=== PATIENT | female | born 1960 ===

== ENCOUNTER 2020-02-23 13:54 | Emergency (ER) | payer OTHER, SELFPAY ==
--- NOTE | 2020-02-23 | ECG_ITS ---
Test Reason : CHEST PAIN Blood Pressure : / mmHG Vent. Rate : 086 BPM Atrial Rate : 086 BPM P-R Int : 110 ms QRS Dur : 084 ms QT Int : 390 ms P-R-T Axes : 020 -55 036 degrees QTc Int : 466 ms Sinus rhythm with short OK Left anterior fascicular block Abnormal ECG No previous ECGs available Referred By: Generic ED Physician Electronically Signed By:JAIME PEPPER
[2020-02-23 14:04] VITALS: BP 177/104; PULSE 90; RESP 18; TEMP 36.6; O2SAT 98; BMI 28.6
[2020-02-23 14:11] VITALS: BP 145/98
--- NOTE | 2020-02-23 15:28 | XR_ITS ---
EXAMINATION: XR CHEST CLINICAL INFORMATION: Chest pain COMPARISON: None TECHNIQUE: Frontal view of the chest was obtained. FINDINGS: No significant abnormality is noted involving the heart, lungs, mediastinum, bony thorax or soft tissues. XR/XR chest 1V IMPRESSION: Unremarkable examination.
--- NOTE | 2020-02-23 16:01 | ED_ITS ---
HPI - Chest Pain General Chief Complaint: Chest Pain Stated Complaint: SUDDEN ONSET CP Time Seen by Provider: 02/23/20 15:53 Source: patient Mode of arrival: EMS Limitations: language barrier History of Present Illness HPI narrative: Finish comes emergency room complaining of chest pain. Patient states approximately at 12:30, she was sitting at her table at home, then started having a sudden onset of squeezing pain in the substernal area. Patient states this has happened in the past once. Patient has no cardiac history. Patient called 911, she was given 3 nitro tablets, full-dose aspirin, states the pain improved from 12/04 to 6/10. At this time, patient states that she still has ongoing chest discomfort. Patient states it is worse if she sits up. Related Data Previous Rx's Medication Instructions Recorded ibuprofen 600 mg PO TID PRN #10 tab 02/23/20 Allergies Allergy/AdvReac Type Severity Reaction Status Date / Time Penicillins AdvReac Rash Verified 02/23/20 14:10 Review of Systems Review of Systems: Constitutional : No Weight loss, No Fever, No Chills, No Night Sweats, No Fatigue, No Malaise ENT/Mouth : No Hearing loss, No Ear Pain, No Nasal Congestion, No Sinus Pain, No Hoarseness, No sore throat, No Rhinorrhea, No Swallowing Difficulty Eyes: No Eye Pain, No Swelling, No Redness, No Foreign Body, No Discharge, No Vision Changes Cardiovascular : Complaining of Chest Pain, complaining of chronic episodes of SOB, this time no dyspnea, symptoms not related to exertion, No Orthopnea, No Edema, No Palpitations Respiratory : No Cough, No Sputum, No Wheezing, No Smoke Exposure, No Dyspnea Gastrointestinal : No Nausea, No Vomiting, No Diarrhea, No Constipation, No abdominal Pain, No Hematochezia, No Melena Genitourinary : no irregular bleeding, No Dysuria, No Urinary Frequency, No Hematuria, No Urinary Incontinence, No Urgency, No Flank Pain, No Urinary Flow Changes, No Hesitancy Musculoskeletal : No joint pain, No Myalgias, No Joint Swelling Skin : No Skin Lesions, No rash Neuro : No Weakness, No Numbness, No Paresthesias, No Loss of Consciousness, No Dizziness, No Headache Psych : No Anxiety/Panic, No Depression, No SI/HI/AH/VH, No Social Issues, Heme/Lymph: No Bruising, No Bleeding,No Lymphadenopathy Endocrine : No Polyuria, No Polydipsia, No Temperature Intolerance [facility] Past Medical History Medical History (Updated 02/23/20 @ 17:42 by Emily Singh MD) Hypertension Pulmonary lesion Social History Social History Smoking Status: Current every day smoker Use of substances other than those prescribed or required for medical reasons: No Advance Directives: No Advance Directives Information Provided: No Physical Exam Vital Signs: Vital Signs: Last Vital Signs Temp 98.6 F 02/23/20 16:42 Pulse 71 02/23/20 16:42 Resp 16 02/23/20 16:42 BP 166/97 H 02/23/20 16:42 Pulse Ox 98 02/23/20 16:42 Body Mass Index 28.6 Appearance: Alert. Oriented X3. No acute distress. Eyes: Pupils equal, round and reactive to light. ENT: Pharynx normal. Neck: Normal inspection. Neck supple. No lymph nodes noted. No crepitus CVS: Normal heart rate and rhythm. Pulses normal. Normal S1 and S2, reproducible chest pain with palpation over the sternum Respiratory: No respiratory distress. Breath sounds normal. No Wheezing. No r ales Abdomen: Soft and nontender. No rigidity. No distention. good BS x4 Skin: Skin warm and dry. Normal skin color. Normal skin turgor. Extremities: No lower extremity edema. No lower extremity edema. No Lacerations. No Rash Neuro: Oriented X 3. No motor deficit. No sensory deficit. Moving all extermities. No slurred speech. Course Course Course Narrative: I discussed the labs and imaging with the patient, no acute findings. Patient states she does feel better, patient states she has no pain at rest or with exertion, only when she moves her left arm or if she presses on her left side of the chest. Patient feels ready to be discharged home. The source of the patient's chest pain, likely musculoskeletal. Unlikely to be from cardiac or pulmonary etiology. MDM - Chest Pain Lab Data Result diagrams: 02/23/20 16:05 02/23/20 16:04 Labs: Lab Results 02/23/20 02/23/20 02/23/20 Range/Units 16:04 16:05 16:05 WBC 9.6 (4.8-10.8) X10*3/uL RBC 4.44 (4.20-5.50) X10*6/uL Hgb 13.3 (12.0-16.0) g/dl Hct 41.3 (37-47) % MCV 93.0 (80-98) fL MCH 30.0 (27.0-33.0) pg MCHC 32.2 (31.0-35.0) g/dl RDW 13.0 (11.0-16.0) % Plt Count 289 (160-400) X10*3/uL MPV 10.4 (9.4-12.3) fL Immature Gran % (Auto) 0.5 H (0.0-0.4) % Neut % (Auto) 62.5 (45-73) % Lymph % (Auto) 26.8 (20-40) % [place] % (Auto) 7.8 (2-11) % Eos % (Auto) 2.0 (0-4) % Baso % (Auto) 0.4 (0-2) % Lymph # (Auto) 2.6 (1.2-4.9) X10*3/uL [place] # (Auto) 0.8 (0.1-1.2) X10*3/uL Eos # (Auto) 0.2 (0.0-0.4) X10*3/uL Baso # (Auto) 0.0 (0.0-0.2) X10*3/uL Abs Immat Gran (auto) 0.05 H (0.00-0.03) X10*3/uL Absolute Neuts (auto) 6.0 (2.0-8.3) X10*3/uL Absolute Nucleated RBC 0.000 (0.0-0.012) X10*3/uL Nucleated RBC % (auto) 0.0 (0.0-0.2) /100WBC D-Dimer NG/ML Hold Blue Top SEE NOTE Sodium 141 (135-145) mmol/L Potassium 4.5 (3.3-5.1) mmol/l Chloride 105 (96-108) mmol/L Carbon Dioxide 27 (22-29) mmol/L Anion Gap 14 (12-20) BUN 16 (9-16) mg/dL Creatinine 0.77 (0.5-1.4) mg/dL Estim Creat Clear Calc 64.9 Estimated GFR > 60 Random Glucose 75 (60-115) mg/dL Calcium 8.9 (8.4-10.2) mg/dL Troponin I High Sens (<3.5-17.0) ng/L 02/23/20 02/23/20 Range/Units 16:05 16:05 WBC (4.8-10.8) X10*3/uL RBC (4.20-5.50) X10*6/uL Hgb (12.0-16.0) g/dl Hct (37-47) % MCV (80-98) fL MCH (27.0-33.0) pg MCHC (31.0-35.0) g/dl RDW (11.0-16.0) % Plt Count (160-400) X10*3/uL MPV (9.4-12.3) fL Immature Gran % (Auto) (0.0-0.4) % Neut % (Auto) (45-73) % Lymph % (Auto) (20-40) % [place] % (Auto) (2-11) % Eos % (Auto) (0-4) % Baso % (Auto) (0-2) % Lymph # (Auto) (1.2-4.9) X10*3/uL [place] # (Auto) (0.1-1.2) X10*3/uL Eos # (Auto) (0.0-0.4) X10*3/uL Baso # (Auto) (0.0-0.2) X10*3/uL Abs Immat Gran (auto) (0.00-0.03) X10*3/uL Absolute Neuts (auto) (2.0-8.3) X10*3/uL Absolute Nucleated RBC (0.0-0.012) X10*3/uL Nucleated RBC % (auto) (0.0-0.2) /100WBC D-Dimer < 200 NG/ML Hold Blue Top Sodium (135-145) mmol/L Potassium (3.3-5.1) mmol/l Chloride (96-108) mmol/L Carbon Dioxide (22-29) mmol/L Anion Gap (12-20) BUN (9-16) mg/dL Creatinine (0.5-1.4) mg/dL Estim Creat Clear Calc Estimated GFR Random Glucose (60-115) mg/dL Calcium (8.4-10.2) mg/dL Troponin I High Sens < 3.5 (<3.5-17.0) ng/L Scores Heart Score History: -0- slightly suspicious ECG: -0- normal Age: -1- >45 - <65 Risk factory: -1- 1 or 2 risk factors Troponin: -0- < or = normal limit Score: 2 Risk: 1.7% Wells PE Clinical symptoms of DVT: 3 Score: 3 2-tier Risk: likely risk (17-53%) 3-tier Risk: moderate risk (27.8%) Discharge Plan Discharge Clinical Impression: Atypical chest pain Patient Disposition: Home, Self-Care Instructions: Chest Pain (ED) Additional Instructions: Please follow-up with your primary care physician tomorrow. If you have any worsening or new symptoms, please return to the emergency room or call 911 Prescriptions: New ibuprofen 600 mg tablet 600 mg PO TID PRN (Reason: pain) Qty: 10 RF: 0
[2020-02-23 16:15] LABS: MANUAL DIFF FLAG NO
[2020-02-23 16:18] LABS: Basophils Percent Auto 0.4 % (0-2); Eosinophils Absolute Auto 0.2 X10*3/uL (0.0-0.4); Hematocrit 41.3 % (37-47); Hemoglobin 13.3 g/dl (12.0-16.0); Imm Gran Abs Auto 0.05 X10*3/uL (0.00-0.03); Imm Gran Pct Auto 0.5 % (0.0-0.4); Lymphocytes Absolute Auto 2.6 X10*3/uL (1.2-4.9); Lymphocytes Percent Auto 26.8 % (20-40); Mean Corpuscular HGB Conc 32.2 g/dl (31.0-35.0); Mean Platelet Volume 10.4 fL (9.4-12.3); Monocytes Absolute Auto 0.8 X10*3/uL (0.1-1.2); Monocytes Percent Auto 7.8 % (2-11); Neutrophils Percent Auto 62.5 % (45-73); Platelet Count 289 X10*3/uL (160-400); Red Blood Count 4.44 X10*6/uL (4.20-5.50); White Blood Count 9.6 X10*3/uL (4.8-10.8)
[2020-02-23 16:30] LABS: D Dimer < 200 NG/ML
[2020-02-23] MEDS: Morphine Sulfate 4 MG/ML CARTRIDGE 3 MG IVPUSH (16:34)
[2020-02-23 16:35] VITALS: BP 148/97; PULSE 76; RESP 16; O2SAT 97
[2020-02-23 16:42] VITALS: BP 166/97; PULSE 71; RESP 16; TEMP 37; O2SAT 98
[2020-02-23 16:46] LABS: Anion Gap 14 (12-20); Blood Urea Nitrogen 16 mg/dL (9-16); Calcium 8.9 mg/dL (8.4-10.2); Carbon Dioxide 27 mmol/L (22-29); Chloride 105 mmol/L (96-108); Creatinine Clr Calc Pharmacy 64.9; Estimated Glomerular Filt Rate > 60; Glucose Random 75 mg/dL (60-115); Potassium 4.5 mmol/l (3.3-5.1); Sodium 141 mmol/L (135-145)
[2020-02-23 16:55] LABS: Troponin-I High Sensitivity < 3.5 ng/L (<3.5-17.0)
== END 2020-02-23 18:24 | disposition home or self-care (01) ==
PROVIDERS: Emergency Provider Emergency Medicine
DX: R07.89 Other chest pain (principal); I10 Essential (primary) hypertension; F17.200 Nicotine dependence, unspecified, uncomplicated; Z71.6 Tobacco abuse counseling; Z79.899 Other long term (current) drug therapy
CPT/HCPCS: 36415; 71045; 80048; 84484; 85025; 85379; 93005; 96374; 99284; J2270

== ENCOUNTER 2022-05-14 08:37 | Outpatient (RCR) | payer OTHER, SELFPAY | END 2022-09-10 16:00 | disposition home or self-care (01) | LOC: HO.WCC 08:37 | PROVIDERS: Visit Provider Physician Assistant | DX: I70.262 Atherosclerosis of native arteries of extremities with gangrene, left leg (principal); L97.522 Non-pressure chronic ulcer of other part of left foot with fat layer exposed; I10 Essential (primary) hypertension; I95.9 Hypotension, unspecified; Z86.718 Personal history of other venous thrombosis and embolism; Z87.891 Personal history of nicotine dependence | CPT/HCPCS: 11042; 97597; 99213; 99215 ==

== ENCOUNTER 2022-08-26 15:40 | Emergency (ER) | payer OTHER, SELFPAY ==
[2022-08-26 15:48] VITALS: BP 152/92; BP 160/100; PULSE 102; PULSE 98; RESP 18; TEMP 37.2; O2SAT 98; O2SAT 99; BMI 27.9
[2022-08-26 15:54] VITALS: RESP 18
[2022-08-26 16:00] VITALS: BP 152/89
--- NOTE | 2022-08-26 16:14 | PC.NURSE ---
pt a&ox3. respirations equal and unlabored. skin appropriate for ethnicity. abdominal sounds hypoactive in all 4 quadrants with tenderness in right, left and epigastric regions. pt reporting epigastric pain for 3 days with 2 days of diarrhea. nausea reported today without vomiting and diarrhea.
--- NOTE | 2022-08-26 17:38 | ED.ABDPAIN ---
HPI - Abdominal Pain General Chief Complaint: Abdominal Pain Stated Complaint: ABD PAIN Time Seen by Provider: 08/26/22 17:22 Source: patient and family Mode of arrival: EMS Limitations: no limitations History of Present Illness HPI narrative: Patient comes to the emergency room by ambulance from home. Patient reporting epigastric pain for 2 days, diarrhea for 2 days, nausea, no vomiting. Patient denies fever or chills. Denies URI or UTI symptoms. Related Data Previous Rx's Medication Instructions Recorded ibuprofen 600 mg tablet 600 mg PO TID PRN pain #10 tabs 02/23/20 cefuroxime axetil 500 mg tablet 500 mg PO BID #13 tabs 08/27/22 ondansetron HCl 4 mg tablet 4 mg PO Q6H PRN nausea and 08/27/22 vomiting #14 tabs Allergies Allergy/AdvReac Type Severity Reaction Status Date / Time Penicillins AdvReac Rash Verified 02/23/20 14:10 Review of Systems Review of Systems Constitutional : No Weight loss, No Fever, No Chills, No Night Sweats, No Fatigue, No Malaise ENT/Mouth : No Hearing loss, No Ear Pain, No Nasal Congestion, No Sinus Pain, No Hoarseness, No sore throat, No Rhinorrhea, No Swallowing Difficulty Eyes: No Eye Pain, No Swelling, No Redness, No Foreign Body, No Discharge, No Vision Changes Cardiovascular : No Chest Pain, No SOB, No Dyspnea on Exertion, No Orthopnea, No Edema, No Palpitations Respiratory : No Cough, No Sputum, No Wheezing, No Smoke Exposure, No Dyspnea Gastrointestinal : Complaining of nausea with no vomiting, 2 days of diarrhea, epigastric pain, complaining of distension Genitourinary : no irregular bleeding, No Dysuria, No Urinary Frequency, No Hematuria, No Urinary Incontinence, No Urgency, No Flank Pain, No Urinary Flow Changes, No Hesitancy Musculoskeletal : No joint pain, No Myalgias, No Joint Swelling Skin : No Skin Lesions, No rash Neuro : No Weakness, No Numbness, No Paresthesias, No Loss of Consciousness, No Dizziness, No Headache Psych : No Anxiety/Panic, No Depression, No SI/HI/AH/VH, No Social Issues, Heme/Lymph: No Bruising, No Bleeding,No Lymphadenopathy Endocrine : No Polyuria, No Polydipsia, No Temperature Intolerance [facility] Past Medical History Medical History Hypertension Pulmonary lesion Social History Social History Alcohol intake: never Smoked in Last 30 Days: Yes Use of substances other than those prescribed or required for medical reasons: No Advance Directives: No Advance Directives Information Provided: No Physical Exam ED Vital Signs: Vital Signs - 24 hr 08/26/22 15:48 08/26/22 15:54 08/26/22 16:00 Temperature 99.0 F Pulse Rate 98 Respiratory Rate 18 18 Blood Pressure 160/100 H 152/89 H Pulse Oximetry 99 Oxygen Delivery Method Room Air 08/26/22 18:07 08/26/22 20:14 08/26/22 23:45 Temperature 97.9 F 99.0 F Pulse Rate 93 88 97 Respiratory Rate 18 12 17 Blood Pressure 123/81 150/82 H 143/89 H Pulse Oximetry 99 98 100 Oxygen Delivery Method Room Air Room Air Room Air 08/27/22 02:00 Temperature 99.1 F Pulse Rate 89 Respiratory Rate 17 Blood Pressure 133/79 Pulse Oximetry 98 Oxygen Delivery Method Room Air BMI result Body Mass Index 27.9 Const Other: Appearance: Alert. Oriented X3. No acute distress. Seems uncomfortable Eyes: Pupils equal, round and reactive to light. ENT: Pharynx normal. Neck: Normal inspection. Neck supple. No lymph nodes noted. No crepitus CVS: Normal heart rate and rhythm. Pulses normal. Normal S1 and S2 Respiratory: No respiratory distress. Breath sounds normal. No Wheezing. No rales Abdomen: Soft , mild discomfort to palpation in the epigastric area, negative Cedillo sign, No rebound, no guarding Skin: Skin warm and dry. Normal skin color. Normal skin turgor. Extremities: No lower extremity edema. No Lacerations. No Rash Neuro: Oriented X 3. No motor deficit. No sensory deficit. Moving all extremities. No slurred speech. CN 2 through 12 grossly intact Psych: calm, cooperative, normal affect Medical Decision Making Medical Decision Making MDM Narrative: I reviewed patient's labs, sodium is 128, which is acute for the patient. Admission is considered. Patient being hydrated with IV fluids. White blood cell count within normal limits, 8.2. Platelets slightly elevated, likely secondary to dehydration -heart rate 97, no C7 depression or elevation, no T-wave inversion, QTC 444 -epigastric pain present, CT scan is pending. -patient also complaining of diarrhea, no vomiting -we will repeat electrolyte levels. -troponin elevated, 20.5, no chest pain, EKG negative for STEMI, 2nd troponin 28.7 -EKG my interpretation: Normal sinus rhythm, heart rate 97, no ST segment depression or elevation, no T-wave inversion, QTC 444 -I agree with Dr. Carroll, troponins are flat, EKG is not concerning for a STEMI or NSTEMI, patient would not be started on heparin for anticoagulation -patient asymptomatic -I discussed the CT scan with Dr. Barragan from radiology. Patient may have acute cholecystitis, left nephrolithiasis with possible Renal mass vs column of Sal -will obtain an ultrasound of the gallbladder/liver to rule out acute cholecystitis. Unlikely to be acute cholecystitis, patient's LFTs within normal limits -of ultrasound shows sludge, discussed with Dr. Wong -system is unavailable, I am unable t to see the ultrasound -if patient continues having epigastric pain, she needs to follow up with surgery. -discussed with the patient she has a mild UTI -hypokalemia -patient has very mild hypokalemia, given p.o. potassium, can follow up with her primary care physician -hyponatremia -sodium improved from 120-130, hyponatremia is mild. -I discussed all this abnormalities with Dr. Carroll, patient not meeting requirements for admission. Additionally, patient would like to home, very reluctant to stay in the hospital. Differential Diagnosis Differential Diagnoses: The differential diagnosis associated with the presentation includes (Viral syndrome, pancreatitis, peptic ulcer disease, ulcer perforation, gastritis, gastroenteritis) Admission/Observation Consideration of admission/observation: Escalation of care including admission/observation considered Consult Healthcare Provider Management of the patient was discussed with: Hospitalist (I discussed the patient with Dr. Carroll, this time, no need for admission.) and [employer] (Dr. Wong from radiology) Lab Data MDM Lab Attestation statement: I reviewed the patient's lab results. 08/26/22 16:10 08/26/22 16:10 Labs: Lab Results 08/26/22 08/26/22 08/26/22 Range/Units 16:10 16:10 16:10 WBC 8.2 (4.8-10.8) X10*3/uL RBC 4.31 (4.20-5.50) X10*6/uL Hgb 11.9 L (12.0-16.0) g/dl Hct 34.3 L (37.0-47.0) % MCV 79.6 L (80.0-98.0) fL MCH 27.6 (27.0-33.0) pg MCHC 34.7 (31.0-35.0) g/dl RDW 15.4 (11.0-16.0) % Plt Count 475 H (160-400) X10*3/uL MPV 8.6 L (9.4-12.3) fL Immature Gran % (Auto) 0.2 (0.0-0.4) % Neut % (Auto) 61.8 (45-73) % Lymph % (Auto) 27.1 (20-40) % [place] % (Auto) 9.9 (2-11) % Eos % (Auto) 0.5 (0-4) % Baso % (Auto) 0.5 (0-2) % Lymph # (Auto) 2.2 (1.2-4.9) X10*3/uL [place] # (Auto) 0.8 (0.1-1.2) X10*3/uL Eos # (Auto) 0.0 (0.0-0.4) X10*3/uL Baso # (Auto) 0.0 (0.0-0.2) X10*3/uL Abs Immat Gran (auto) 0.02 (0.00-0.03) X10*3/uL Absolute Neuts (auto) 5.1 (2.0-8.3) x10*3/uL Absolute Nucleated RBC 0.000 (0.0-0.012) X10*3/uL Nucleated RBC % (auto) 0.0 (0.0-0.2) /100WBC Sodium 128 L (135-145) mmol/L Potassium 3.5 (3.3-5.1) mmol/L Chloride 88 L (96-108) mmol/L Carbon Dioxide 26 (22-29) mmol/L Anion Gap 18 (12-20) BUN 14 (9-16) mg/dL Creatinine 0.89 (0.5-1.4) mg/dL Estim Creat Clear Calc 53.4 Estimated GFR > 60 Random Glucose 138 H (60-115) mg/dL Calcium 10.4 H D (8.4-10.2) mg/dL Total Bilirubin 0.5 (0.0-1.0) mg/dL Direct Bilirubin 0.2 (0.0-0.5) mg/dL AST 14 (5-31) U/L ALT 11 (0-31) U/L Alkaline Phosphatase 99 (39-117) U/L Troponin I High Sens 20.5 H (<3.5-17.0) ng/L Total Protein 8.2 H (6.5-8.0) g/dL Albumin 4.7 (3.5-5.0) g/dL Lipase 11 (8-78) U/L Urine Color Urine Appearance Urine pH (5.0-9.0) Ur Specific [place] (1.005-1.025) Urine Protein (Neg-Trace) mg/dL Urine Glucose (UA) (Negative) mg/dL Urine Ketones (Negative) mg/dL Urine Blood (Negative) Urine Nitrite (Negative) Ur Leukocyte Esterase (Negative) Urine RBC (0-2) /HPF Urine WBC (0-5) /HPF Ur Squamous Epith Cells (0-2) /HPF Urine Bacteria (None Seen) Hyaline Casts (0-2) /LPF 08/26/22 08/26/22 08/26/22 Range/Units 16:57 23:51 23:51 WBC (4.8-10.8) X10*3/uL RBC (4.20-5.50) X10*6/uL Hgb (12.0-16.0) g/dl Hct (37.0-47.0) % MCV (80.0-98.0) fL MCH (27.0-33.0) pg MCHC (31.0-35.0) g/dl RDW (11.0-16.0) % Plt Count (160-400) X10*3/uL MPV (9.4-12.3) fL Immature Gran % (Auto) (0.0-0.4) % Neut % (Auto) (45-73) % Lymph % (Auto) (20-40) % [place] % (Auto) (2-11) % Eos % (Auto) (0-4) % Baso % (Auto) (0-2) % Lymph # (Auto) (1.2-4.9) X10*3/uL [place] # (Auto) (0.1-1.2) X10*3/uL Eos # (Auto) (0.0-0.4) X10*3/uL Baso # (Auto) (0.0-0.2) X10*3/uL Abs Immat Gran (auto) (0.00-0.03) X10*3/uL Absolute Neuts (auto) (2.0-8.3) x10*3/uL Absolute Nucleated RBC (0.0-0.012) X10*3/uL Nucleated RBC % (auto) (0.0-0.2) /100WBC Sodium 130 L (135-145) mmol/L Potassium 3.2 L (3.3-5.1) mmol/L Chloride 95 L (96-108) mmol/L Carbon Dioxide 23 (22-29) mmol/L Anion Gap 15 (12-20) BUN 12 (9-16) mg/dL Creatinine 0.79 (0.5-1.4) mg/dL Estim Creat Clear Calc 60.1 Estimated GFR > 60 Random Glucose 110 (60-115) mg/dL Calcium 9.6 D (8.4-10.2) mg/dL Total Bilirubin (0.0-1.0) mg/dL Direct Bilirubin (0.0-0.5) mg/dL AST (5-31) U/L ALT (0-31) U/L Alkaline Phosphatase (39-117) U/L Troponin I High Sens 28.7 H (<3.5-17.0) ng/L Total Protein (6.5-8.0) g/dL Albumin (3.5-5.0) g/dL Lipase (8-78) U/L Urine Color Yellow Urine Appearance Clear Urine pH 7.5 (5.0-9.0) Ur Specific [place] 1.010 (1.005-1.025) Urine Protein Negative (Neg-Trace) mg/dL Urine Glucose (UA) Negative (Negative) mg/dL Urine Ketones Negative (Negative) mg/dL Urine Blood Negative (Negative) Urine Nitrite Negative (Negative) Ur Leukocyte Esterase Trace H (Negative) Urine RBC 3-5 H (0-2) /HPF Urine WBC 0-5 (0-5) /HPF Ur Squamous Epith Cells 0-2 (0-2) /HPF Urine Bacteria None Seen (None Seen) Hyaline Casts 0-2 (0-2) /LPF Radiology Impression Discussion of test interpretation with radiology: I have reviewed the radiologist's reading. Independent Historian Clinical information obtained from an independent historian. History obtained from or confirmed by: Spouse Medications Administered Discontinued Medications Generic Name Dose Route Start Last Admin Trade Name Freq PRN Reason Stop Dose Admin Famotidine 20 mg 08/26/22 17:38 08/26/22 18:24 Famotidine/Pf 20 Mg/2 Ml Vial IVPUSH 08/26/22 17:39 20 mg ONCE ONE Administration Sodium Chloride 1,000 mls @ 999 mls/hr 08/26/22 17:37 08/26/22 19:26 Ns IVCONT 08/26/22 18:37 Infused .Q1H1M ONE Infusion Iohexol 100 ml 08/26/22 20:50 08/26/22 20:50 Iohexol 350 Mg/Ml 100 Ml Infus..Btl IV 08/26/22 20:51 85 ml ONCE ONE Administration Ondansetron HCl 4 mg 08/26/22 19:50 08/26/22 19:55 Ondansetron Hcl 4 Mg/2 Ml Vial IVPUSH 08/26/22 19:51 4 mg ONCE ONE Administration Critical Care Time Critical Care Time Critical Care Time: Yes Total Critical Care Time: 60 Attestation: I have personally provided critical care time. Time includes review of lab data, radiology results, discussion with consultants, and monitoring for potential decompensation. Intervention performed as documented. Discharge Plan Discharge Clinical Impression: Abdominal pain, UTI (urinary tract infection), Acute hyponatremia, Acute hypokalemia Patient Disposition: Home, Self-Care Instructions: Urinary Tract Infection in Women (ED), Acute Nausea and Vomiting (ED), Abdominal Pain (ED) Additional Instructions: Please follow-up with your primary care physician tomorrow. If you have any worsening or new symptoms, please return to the emergency room or call 911 Prescriptions: New cefuroxime axetil 500 mg tablet 500 mg PO BID Qty: 13 0RF ondansetron HCl 4 mg tablet 4 mg PO Q6H PRN (Reason: nausea and vomiting) Qty: 14 0RF No Action ibuprofen 600 mg tablet 600 mg PO TID PRN (Reason: pain) Qty: 10 0RF Referrals: Kael Medley MD [Physician] - 09/03/22
[2022-08-26 18:07] VITALS: BP 123/81; PULSE 93; RESP 18; O2SAT 99
--- NOTE | 2022-08-26 19:00 | PC.NURSE ---
Assume care of pt in room ED 5 from RN. Pt is resting in bed, denies any CP but does state she had epigastric pain earlier when she came to the ED . At moment pt is on cardiac monitoring, displaying NSR, HR in the 70s-80s. Pt also is non-labored breathing no signs of SOB. Chest rises equally, bilaterally, with clear lung sounds. Pt is awaiting diagnostic results and lab work.
[2022-08-26 20:14] VITALS: BP 150/82; PULSE 88; RESP 12; TEMP 36.6; O2SAT 98
[2022-08-26 23:45] VITALS: BP 143/89; PULSE 97; RESP 17; TEMP 37.2; O2SAT 100
[2022-08-27 02:00] VITALS: BP 133/79; PULSE 89; RESP 17; TEMP 37.3; O2SAT 98
[2022-08-27] MEDS: Potassium Chloride Packet 20 MEQ PACKET 40 MEQ PO (03:04)
== END 2022-08-27 03:11 | disposition home or self-care (01) ==
PROVIDERS: Emergency Provider Emergency Medicine; PCP Physician Assistant Medical
DX: N39.0 Urinary tract infection, site not specified (principal); E87.1 Hypo-osmolality and hyponatremia; E87.6 Hypokalemia; R10.13 Epigastric pain; R19.7 Diarrhea, unspecified; R11.0 Nausea
CPT/HCPCS: 36415; 71046; 74177; 76705; 80048; 80076; 81001; 83690; 84484; 85025; 93005; 96361; 96374; 96375; 99284; 99285; J2405; Q9967

== ENCOUNTER 2023-06-06 11:00 | Outpatient (RCR) | payer OTHER, SELFPAY | END 2023-06-06 15:26 | disposition home or self-care (01) | LOC: HO.PT 11:00 | PROVIDERS: PCP Physician Assistant Medical; Visit Provider Surgery Vascular Surgery | DX: S98.922 Partial traumatic amputation of left foot, level unspecified (principal) | CPT/HCPCS: 97110; 97112; 97140; 97162; 97164; 97530 ==

== ENCOUNTER 2023-09-06 11:00 | Outpatient (RCR) | payer OTHER, SELFPAY | END 2023-12-24 10:39 | disposition home or self-care (01) | LOC: HO.PT 11:00 | PROVIDERS: PCP Physician Assistant Medical; Visit Provider Orthopaedic Surgery | DX: M25.572 Pain in left ankle and joints of left foot (principal) | CPT/HCPCS: 97110; 97140; 97162; 97163; 97535 ==